=== PATIENT | male | born 1935 | race Caucasian/White ===

== ENCOUNTER 2020-08-25 11:27 | Day surgery (SDC) | payer MEDICARE, OTHER ==
[~2020-08-25 11:27] MED LIST: CHONDR SU A NA/HYALUR INTRAOC KIT (SURGICARE) ONE; DORZOLAMIDE HCL 2%/TIMOLOL MALEAT 0.5% OPH SOLN 10 ML OD PRN; EPINEPHRINE INJ/PF 1 MG/1 ML AMPULE ONE; FENTANYL CITRATE INJ/PF 100 MCG/2 ML AMPUL ONE; KETOROLAC TROMETHAMINE 0.45% 4 DROP/0.4 ML DROPERETTE OD PRN; LIDOCAINE 1%/PHENYLEPHRINE 1.5% 1 ML VIAL ONE; MIDAZOLAM 2 MG/2 ML INJ ONE; ONDANSETRON HCL INJ/PF 4 MG/2 ML SDV ONE; PREDNISOLONE ACETATE 1% OPH SUSP 5 ML OD PRN
[2020-08-25] MEDS: TETRACAINE HCL 0.5% OPH SOLN 4 ML OD PRN ×3 (11:41→12:03)
[2020-08-25] MEDS: TROPICAMIDE 1% OPH SOLN 15 ML OD PRN ×3 (11:41→12:01)
[2020-08-25] MEDS: BESIFLOXACIN HCL 0.6% OPH SUSP 5 ML BOTTLE OD PRN ×3 (11:42→12:27)
[2020-08-25] MEDS: CYCLOPENTOLATE 0.2%/PHENYLEPHRINE 1% OPH SOLN 2 ML OD PRN ×3 (11:42→12:01)
--- NOTE | 2020-08-25 14:31 | Operative Report ---
Operative Report-[facility] Operative Report: DATE OF SURGERY: August 25, 2020 PREOPERATIVE DIAGNOSIS: NUCLEAR CATARACT, RIGHT EYE. POSTOPERATIVE DIAGNOSIS: NUCLEAR CATARACT, RIGHT EYE. PROCEDURE PERFORMED: PHACOEMULSIFICATION WITH POSTERIOR CHAMBER INTRAOCULAR LENS IMPLANT, RIGHT EYE. SURGEON: Henry Brown DO MEDICATIONS AND ANESTHESIA: Versed: IV Versed Tetracaine drops: 1 to 2 drops given as needed COMPLICATION: None INDICATIONS FOR SURGERY: Medical necessity: Best corrected visual acuity worse than 20/40 secondary to cataracts with impairment of ability to carry out needs or desired activities, blurred vision, visual distortion, reduced contrast sensitivity and/or glare with association functional impairment and supporting documentation/testing, and cataracts causing symptomatic impairment of visual functions not corrected with tolerable changes in glasses or contact lenses interfering with activities of daily life. PROCEDURE: Consent: The risks, benefits and alternatives of this procedures was discussed with the patient. The patient read and signed the consent forms, was identified and was seated in the exam chair. IOL: MX 60 E 25.0 IOL Diopters: Phacoemulsification with posterior chamber intraocular lens implant: The face was prepped with 5% povidone iodine solution, and a few drops of 5% povidone iodine solution was instilled into the inferior fornix. A non-fenestrated drape was placed over the eye and the lids were parted with the speculum. A paracentesis was made with a 15 degree blade, and 1% lidocaine MPF followed by viscoelastic was injected into the anterior chamber. A 2.4 mm metal micro- keratome was used to create a temporal clear corneal incision. A circular anterior capsulorrhexis was created, followed by hydro-dissection and hydro- delineation. The phacoemulsification hand piece was inserted and the nucleus was removed with the Phaco chop technique. The irrigation-aspiration hand piece was used to remove the residual cortex, and vacuum the posterior capsule. The capsular bag was inflated and viscoelastic and the above-mentioned IOL was injected into the eye with care to insert both leaning and trailing haptics in the capsular bag. The irrigation/aspiration hand piece was reinserted to remove residual viscoelastic from the capsular bag and anterior chamber. The corneal incision was hydrated, and anterior chamber was inflated with sterile BSS via the paracentesis site, and found to be watertight. Postop medication: 1 drop of prednisolone into operative by followed by 1 drop of Cosopt into operative eye followed by 1 drop of Besivance intraoperative by other:
== END 2020-08-25 12:59 ==
LOC: SC 11:27
PROVIDERS: ATTEND Ophthalmology
DX: H25.11 Age-related nuclear cataract, right eye (principal); H35.3132 Nonexudative age-related macular degeneration, bilateral, intermediate dry stage; I10 Essential (primary) hypertension; I48.91 Unspecified atrial fibrillation; E78.00 Pure hypercholesterolemia, unspecified; Z79.899 Other long term (current) drug therapy; Z86.718 Personal history of other venous thrombosis and embolism
CPT/HCPCS: 66984; J2250; J3490 ×2; A9270; J0171; J2405; J3010; V2632

== ENCOUNTER 2020-09-08 07:23 | Day surgery (SDC) | payer MEDICARE, OTHER ==
[~2020-09-08 07:23] MED LIST changes: -DORZOLAMIDE HCL 2%/TIMOLOL MALEAT 0.5% OPH SOLN 10 ML OD PRN; -FENTANYL CITRATE INJ/PF 100 MCG/2 ML AMPUL ONE; -KETOROLAC TROMETHAMINE 0.45% 4 DROP/0.4 ML DROPERETTE OD PRN; +KETOROLAC TROMETHAMINE 0.45% 4 DROP/0.4 ML DROPERETTE OS PRN; -MIDAZOLAM 2 MG/2 ML INJ ONE; -ONDANSETRON HCL INJ/PF 4 MG/2 ML SDV ONE; -PREDNISOLONE ACETATE 1% OPH SUSP 5 ML OD PRN
[2020-09-08] MEDS: TETRACAINE HCL 0.5% OPH SOLN 4 ML OS PRN ×3 (08:15→08:50)
[2020-09-08] MEDS: BESIFLOXACIN HCL 0.6% OPH SUSP 5 ML BOTTLE OS PRN ×4 (08:15→09:04)
[2020-09-08] MEDS: TROPICAMIDE 1% OPH SOLN 15 ML OS PRN ×3 (08:15→08:40)
[2020-09-08] MEDS: CYCLOPENTOLATE 0.2%/PHENYLEPHRINE 1% OPH SOLN 2 ML OS PRN ×3 (08:15→08:40)
[2020-09-08] MEDS ORDERED: MIDAZOLAM 2 MG/2 ML INJ ONE (08:34)
[2020-09-08] MEDS: DORZOLAMIDE HCL 2%/TIMOLOL MALEAT 0.5% OPH SOLN 10 ML OS PRN ×2 (08:59→09:04)
[2020-09-08] MEDS: PREDNISOLONE ACETATE 1% OPH SUSP 5 ML OS PRN ×2 (08:59→09:04)
--- NOTE | 2020-09-08 11:03 | Operative Report ---
Operative Report-[facility] Operative Report: DATE OF SURGERY: September 08, 2020 PREOPERATIVE DIAGNOSIS: NUCLEAR CATARACT, LEFT EYE. POSTOPERATIVE DIAGNOSIS: NUCLEAR CATARACT, LEFT EYE. PROCEDURE PERFORMED: PHACOEMULSIFICATION WITH POSTERIOR CHAMBER INTRAOCULAR LENS IMPLANT, LEFT EYE. SURGEON: Henry Brown DO MEDICATIONS AND ANESTHESIA: Versed: IV Versed Tetracaine drops: 1 to 2 drops given as needed COMPLICATION: None INDICATIONS FOR SURGERY: Medical necessity: Best corrected visual acuity worse than 20/40 secondary to cataracts with impairment of ability to carry out needs or desired activities, blurred vision, visual distortion, reduced contrast sensitivity and/or glare with association functional impairment and supporting documentation/testing, and cataracts causing symptomatic impairment of visual functions not corrected with tolerable changes in glasses or contact lenses interfering with activities of daily life. PROCEDURE: Consent: The risks, benefits and alternatives of this procedures was discussed with the patient. The patient read and signed the consent forms, was identified and was seated in the exam chair. IOL: MX 60 E 24.0 IOL Diopters: Phacoemulsification with posterior chamber intraocular lens implant: The face was prepped with 5% povidone iodine solution, and a few drops of 5% povidone iodine solution was instilled into the inferior fornix. A non-fenestrated drape was placed over the eye and the lids were parted with the speculum. A paracentesis was made with a 15 degree blade, and 1% lidocaine MPF followed by viscoelastic was injected into the anterior chamber. A 2.4 mm metal micro- keratome was used to create a temporal clear corneal incision. A circular anterior capsulorrhexis was created, followed by hydro-dissection and hydro- delineation. The phacoemulsification hand piece was inserted and the nucleus was removed with the Phaco chop technique. The irrigation-aspiration hand piece was used to remove the residual cortex, and vacuum the posterior capsule. The capsular bag was inflated and viscoelastic and the above-mentioned IOL was injected into the eye with care to insert both leaning and trailing haptics in the capsular bag. The irrigation/aspiration hand piece was reinserted to remove residual viscoelastic from the capsular bag and anterior chamber. The corneal incision was hydrated, and anterior chamber was inflated with sterile BSS via the paracentesis site, and found to be watertight. Postop medication:1 drop of prednisolone into operative by followed by 1 drop of Cosopt into operative eye followed by 1 drop of Besivance intraoperative by Other:
--- OUTSIDE RECORDS SUMMARY | 2020-09-09 17:55 | XMS REPORT ---
:1935 [facility] [address] [place] [address] Care Team Providers Name Role Phone Ken Porras Primary Care Physician Unavailable ERAN Attending Clinician Unavailable Eran RICHMOND Attending Clinician Unavailable Vern RICHMOND Attending Clinician Unavailable MD Serina Olivera Attending Clinician Unavailable MD Serina Olivera Attending Clinician Unavailable MD Pamela Attending Clinician Unavailable MD Pamela Attending Clinician Unavailable ALEXUS Attending Clinician Unavailable Ashley Calderon Admitting Clinician Unavailable MD Pamela Admitting Clinician Unavailable Allergies, Adverse Reactions, Alerts This patient has no known allergies or adverse reactions. Medications Ordered Filled Start Stop Current Ordering Indication Dosage Frequency Signature Comments Components Medication Medication Date Date Medication? Clinician (SIG) Name Name Furosemide 2019-10 Peg Rogers Furosemide 20 MG Oral 0-12 Porras 20 MG Oral Tablet 00:00: Tablet 1 00 tablet each day as needed for leg swelling Quantity: 30 Refills: 1 Ken Porras MD Start : 0Active Lisinopril 2019-10 Yes Ken QD Lisinopril 5 MG Oral 0-12 Porras 5 MG Oral Tablet 00:00: MD Tablet 00 TAKE 1 TABLET DAILY DIRECTED Quantity: 90 Refills: 3 Ken Porras MD Start : 0Active Furosemide 2019-10 Yes Ken Furosemide 20 MG Oral 0-12 Porras 20 MG Oral Tablet 00:00: Tablet 1 00 tablet each day as needed for leg swelling Quantity: 90 Refills: 3 Ken Porras MD Start : 0Active Furosemide 2019-10 No Ken 1 QD Furosemide 20 MG Oral 0-12 Porras 20 MG Oral Tablet 00:00: MD Tablet 00 TAKE 1 TABLET DAILY Quantity: 30 Refills: 3 Ken Porras MD Start : 0Active Metoprolol Peg Figueroa Metoprolol Tartrate 25 9-18 Eran RICHMOND Tartrate MG Oral 00:00: 25 MG Oral Tablet 00 Tablet TAKE 1/2 (ONE-HALF) TABLET BY MOUTH TWICE A DAY Quantity: 180 Refills: 3 Henry Barillas MD Start : 0Active Eliquis 5 2020-0 Yes Eligio Eliquis 5 MG Oral 07-16 Pamela MD MG Oral Tablet 00:00: Tablet 00 TAke 1 tablet twice a day Quantity: 90 Refills: 3 Eligio Santiago MD Start : 0Active Metoprolol 2020-0 Yes Eligio Metoprolol Tartrate 25 07-16 Pamela RICHMOND Tartrate MG Oral 00:00: 25 MG Oral Tablet 00 Tablet TAKE 1/2 (ONE-HALF) TABLET BY MOUTH TWICE A DAY Quantity: 180 Refills: 3 Eligio Santiago MD Start : 0Active Lasix 20 mg 2020-0 Yes 20mg 20 mg = 1 oral tablet 9-13 tab(s), 16:29: PO, Daily, 00 # 5 tab(s), 0 Refill(s), Pharmacy: [email or web address] #[id number], 167, cm, 07/11/20 12:24:00 EDT, Height, 68, kg, 07/11/20 12:24:00 EDT, Weight metoprolol 2020-0 Yes 12.5mg 12.5 mg = tartrate 25 9-13 0.5 mg oral 16:24: tab(s), tablet 00 PO, BID Eliquis 5 2020-0 Yes 5mg 5 mg = 1 mg oral -13 tab(s), tablet 16:23: PO, BID 00 Metoprolol 2020-0 No 12.5mg 12.5 mg = Tartrate 25 9-07 0.5 mg oral 12:58: tab(s), tablet 00 PO, BID, # 30 tab(s), 2 Refill(s), Pharmacy: [facility] #[id number], 172.72, cm, 07/04/20 1:45:00 EDT, Height, 59.5, kg, 07/04/20 1:45:00 EDT, Weight Eliquis 5 2020-0 No 5mg 5 mg = 1 mg oral 9-07 tab(s), tablet 12:58: PO, BID, # 00 60 tab(s), 2 Refill(s), Pharmacy: [facility] #[id number], 172.72, cm, 07/04/20 1:45:00 EDT, Height, 59.5, kg, 07/04/20 1:45:00 EDT, Weight acetaminoph 2020-0 Yes 650mg 650 mg = 2 en 325 mg 9-07 tab(s), oral tablet 12:58: PO, q4h, 00 Other: See Comments, 0 Refill(s) aspirin 81 2020-0 Yes 81mg 81 mg = 1 mg oral 9-07 tab(s), delayed 12:52: PO, Daily release 00 tablet simvastatin 2020-0 Yes 40mg 40 mg = 1 40 mg oral -07 tab(s), tablet 12:52: PO, QHS 00 FeroSul 325 2020-0 Yes 325mg 325 mg = 1 mg (65 mg -07 tab(s), elemental 12:49: PO, Daily iron) oral 00 tablet Aspirin EC 2020-0 Yes Ken Aspirin EC 81 MG Oral 06-28 Porras 81 MG Oral Tablet 00:00: Tablet Delayed 00 Delayed Release Release Take 1 tablet by mouth once daily Quantity: 90 Refills: 3 Ken Porras MD Start : 0Active Atenolol 50 2020-0 No Ken 1 QD Atenolol MG Oral 06-28 Porras 50 MG Oral Tablet 00:00: Tablet 00 TAKE 1 TABLET DAILY. Refills: 0 Ken Porras MD Start : 0Active Lisinopril 2020-0 Peg Rogers Lisinopril 10 MG Oral 06-28 Vern 10 MG Oral Tablet 00:00: Tablet 00 TAKE ONE TABLET BY MOUTH EVERY DAY Quantity: 1 Refills: 3 Ken Porras MD Start : 0Active 90 Tablet Bottle Sulfamethox 2020-0 No Ken Q0.5D Sulfametho azole-Trime 06-28 Vern xazole-Tri thoprim 00:00: methoprim 800-160 MG 00 800-160 MG Oral Tablet Oral Tablet TAKE 1 TABLET TWICE DAILY. Quantity: 10 Refills: 0 Ken Porras MD Start : 0Active FeroSul 325 2020-0 No 0 FeroSul (65 Fe) MG 8-14 325 (65 Oral Tablet 00:00: Fe) MG 00 Oral Tablet TK 1 T PO QD Quantity: 30 Refills: 0 ,,, Start : 0Active Simvastatin 2019-0 No Simvastati 40 MG Oral 8-14 n 40 MG Tablet 00:00: Oral 00 Tablet TK 1 T PO ONCE D HS Quantity: 30 Refills: 0 Start : 0Active FeroSul 325 2019-0 Yes Ken FeroSul (65 Fe) MG 8- Vern 325 (65 Oral Tablet 00:00: MD Fe) MG 00 Oral Tablet 1 tablet 3 times daily Quantity: 270 Refills: 2 Ken Porras MD Start : 0Active Simvastatin 0 Yes Ken QD Simvastati 40 MG Oral 8- Vern n 40 MG Tablet 00:00: Oral 00 Tablet TAKE 1 TABLET DAILY DIRECTED. 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 medical history not documented Hypertensio Hypertensio Problem Active n n Anemia Anemia Problem Active Vitamin B Vitamin B Problem Active 12 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 Mild Mild Problem Active vitamin D vitamin D deficiency deficiency Toe pain, Toe pain, Problem Active bilateral bilateral Persistent Persistent Problem Active atrial atrial fibrillatio fibrillatio n n Iron Iron 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 Procedures Procedure Date / Time Performed Performing Clinician Shiv silvestre Basic Metabolic Panel(BMP) 2020-09-06 00:00:00 Hemoglobin 2020-09-06 00:00:00 L - proBNP 2020-09-06 00:00:00 Magnesium 2020-09-06 00:00:00 CMP(Complete Metabolic Panel) 2020-08-09 00:00:00 EKG 2020-07-22 00:00:00 Embolectomy Thrombectomy Femoral 2020-07-03 21:56:00 IPO (Left)1 Embolectomy Thrombectomy Femoral 2020-07-03 21:56:00 IPO (Left)1 History of Thrombectomy 2020-07-03 00:00:00 Manual Diff 2020-06-29 00:00:00 CMP(Complete Metabolic Panel) 2020-06-28 00:00:00 Iron & TIBC Panel 2020-06-28 00:00:00 Lipid Panel 2020-06-28 00:00:00 Thyroid Panel 2020-06-28 00:00:00 Vitamin B12 2020-06-28 00:00:00 Vitamin D Total 2020-06-28 00:00:00 Urine Culture 2020-06-28 00:00:00 Procedures not documented Results Test Description Test Time Test Comments Text Results Atomic Results Result Comments CMP(Complete Metabolic Panel) 2020-08-09 12:10:00 Test Item Value Reference Range Comments Glucose (test code = Glucose) 79 mg/dL 74-106 Sodium (test code = Sodium) 138 mmol/L 135-145 Potassium (test code = Potassium) 4.8 mmol/L 3.5-5.3 Chloride (test code = Chloride) 106 mmol/L 98-107 CO2 (test code = CO2) 28 mmol/L 22-30 Creatinine, serum (test code = Creatinine, serum) 1.10 mg/dL 0.10-1.25 Glomerular Filtration Rate (test code = Glomerular Filtration >6 0 >60 Rate) Glomerular Filtration Rate AA (test code = Glomerular >60 >60 Filtration Rate AA) Blood Urea Nitrogen (test code = Blood Urea Nitrogen) 17 mg/dL 9-20 Calcium (test code = Calcium) 9.9 mg/dL 8.4-10.5 Phosphorus (test code = Phosphorus) 3.3 mg/dL 2.5-4.5 Total Protein (test code = Total Protein) 6.7 g/dL 6.3-8. 2 Albumin (test code = 57591-0) 3.9 g/dL 3.5-5.0 Total Bilirubin (test code = Total Bilirubin) 0.7 mg/dL 0. 2-1.3 Bilirubin, unconj (test code = Bilirubin, unconj) 0.5 mg/dL 0.0-1.1 Bilirubin, Direct (test code = Bilirubin, Direct) 0.2 mg/dL 0.0-0.4 Alkaline Phosphatase (test code = Alkaline Phosphatase) 136 U/L 20-150 Alanine Transaminase (test code = Alanine Transaminase) 13 U/L 0-50 Aspartate Aminotransferase (test code = Aspartate 22 U/L 3-36 Aminotransferase) [id number] 12:06:00 Test Item Value Reference Range Comments White Blood Cell (test code = White Blood Cell) 8.5 K/uL 3.5-11.1 Red Blood Cell (test code = Red Blood Cell) 4.79 {M/uL} 4.27 -5.49 Hemoglobin (test code = Hemoglobin) 14.0 g/dL 12.9-16.1 Hematocrit (test code = Hematocrit) 44 % 38-47 Mean Corpuscular Volume (test code = Mean 91.0 fL 79.0-9 5.0 Corpuscular Volume) Mean Corpuscular Hemoglobin (test code = Mean 29.2 pg/mL 27 .0-33.0 Corpuscular Hemoglobin) Mean Corpuscular Hemoglobin Concentration (test 32.1 g/dL 33.5-35.5 code = Mean Corpuscular Hemoglobin Concentration) Red Cell Distribution Width (test code = Red 14.9 % 12. 0-15.0 Cell Distribution Width) Platelet (test code = Platelet) 252 K/uL 130-353 Mean Platelet Volume (test code = Mean Platelet 9.3 fL 7.5-10.7 Volume) Neutrophil Count, absolute (test code = 5.6 K/uL 1.9-7.2 Neutrophil Count, absolute) Neutrophil Count Percentage (test code = 65.9 % 43.0-72 .0 Neutrophil Count Percentage) Lymphocyte Count, absolute (test code = 1.9 K/uL 1.1-2.7 Lymphocyte Count, absolute) Lymphocyte Count Percentage (test code = 22.0 % 17.0-44 .0 Lymphocyte Count Percentage) Monocyte Count, absolute (test code = Monocyte 0.8 K/uL 0 .3-0.8 Count, absolute) Monocyte Count Percentage (test code = Monocyte 8.8 % 4.5-12.4 Count Percentage) Eosinophil Count, absolute (test code = 0.2 K/uL 0.0-0.5 Eosinophil Count, absolute) Eosinophil Count Percentage (test code = 2.8 % 0.7-7.8 Eosinophil Count Percentage) Basophil Count, absolute (test code = Basophil 0.0 K/uL 0 .0-0.1 Count, absolute) Basophil Count Percentage (test code = Basophil 0.4 % 0.2-1.1 Count Percentage) PT,[id number] 13:30:00 Test Item Value Reference Range Comments PT (test code = PT) 11.3 s 9.7-11.3 INR (test code = INR) 1.1 0.9-1.1 [id number] 13:30:00 Test Item Value Reference Range Comments PTT (test code = PTT) 29.1 s 22.5-28.6 B-Natriuretic [id number] 12:43:00 Test Item Value Reference Range Comments B-Natriuretic Peptide (test code = 391.00 pg/mL 0-100 B-Natriuretic Peptide) WBC,Neutro Percent,Lymph Percent,Larimer Percent,Eos Percent,Basophil Percent,Neut Absolute,Lymphs [id number] 12:43:00 Test Item Value Reference Range Comments WBC (test code = WBC) 12.1 1 4.8-10.8 Neutro Percent (test code = 72.8 % 34.6-71.4 Neutro Percent) Lymph Percent (test code = 15.7 % 19.6-52.7 Lymph Percent) Larimer Percent (test code = Larimer 8.4 % 2.4-11.8 Percent) Eos Percent (test code = Eos 2.2 % 0-7.8 Percent) Basophil Percent (test code = 0.6 % 0-1.8 Basophil Percent) Neut Absolute (test code = Neut 8.8 1 1.8-7.3 Absolute) Lymphs Absolute (test code = 1.9 1 1.5-4.0 Lymphs Absolute) Larimer Absolute (test code = Larimer 1.0 1 0.2-1.0 Absolute) Eos Absolute (EOSA) (test code 0.3 1 0-0.7 = Eos Absolute (EOSA)) Baso Absolute (BASOA) (test 0.1 1 0.0-0.2 code = Baso Absolute (BASOA)) RBC (test code = RBC) 4.54 1 4.70-6.10 Hgb (test code = Hgb) 13.5 1 14.0-18.0 Hct (test code = Hct) 41.4 % 40.0-54.0 Result Com ment: HEMATOCRIT-RECHE CKED MCV (MCV) (test code = MCV 91.2 fL 80-94 (MCV)) MCH (HCH) (test code = MCH 29.7 pg 27-34 (HCH)) MCHC (MCHC) (test code = MCHC 32.6 % 31.5-36.0 (MCHC)) RDW (RDW) (test code = RDW 15.6 % 11.5-14.5 (RDW)) Platelet (test code = Platelet) 472 1 130-400 MPV (test code = MPV) 9.5 fL 7.4-10.4 Glucose Lvl,BUN,Creatinine,Bili Total,Alk Phos,AST,ALT,Total Protein,Albumin Lvl,Globulin,Albumin/[id number] 12:43:00 Test Item Value Reference Range Comments Glucose Lvl (test code = Glucose Lvl) 98 mg/dL 74-106 BUN (test code = BUN) 15 mg/dL 9-23 Creatinine (test code = Creatinine) 0.99 mg/dL 0.70-1.30 Bili Total (test code = Bili Total) 1.2 mg/dL 0.2-1.2 Alk Phos (test code = Alk Phos) 133 1 46-116 AST (test code = AST) 23 1 15-34 ALT (test code = ALT) 17 1 10-49 Total Protein (test code = Total Protein) 7.1 1 5.7-8. 2 Albumin Lvl (test code = Albumin Lvl) 3.8 1 3.4-5.0 Globulin (test code = Globulin) 3.3 1 1.5-4.5 Albumin/Globulin Ratio (test code = 1.2 1.1-1.8 Albumin/Globulin Ratio) Calcium Lvl (test code = Calcium Lvl) 10.1 mg/dL 8.7-10.4 Sodium Lvl (test code = Sodium Lvl) 137 mmol/L 136-145 Potassium Lvl (test code = Potassium Lvl) 4.4 mmol/L 3.4-5. 1 Chloride (test code = Chloride) 106 mmol/L 98-107 CO2 (test code = CO2) 27.0 mmol/L 20-31 Anion Gap (test code = Anion Gap) 4 4-18 Calc Osmol (test code = Calc Osmol) 274 1 BUN/CR Ratio (test code = BUN/CR Ratio) 15 GFR Non (test code = GFR Non >60.00 ) GFR (test code = GFR >60.00 Czech) [id number] 12:43:00 Test Item Value Reference Range Comments Troponin-I (test code = Troponin-I) <0.01 0.00-0.06 POC [id number] 07:30:00 Test Item Value Reference Range Comments POC Glucose (test code = POC Glucose) Done Charted [id number] 04:37:00 Test Item Value Reference Range Comments PTT (test code = PTT) 108.1 s 22.5-28.6 Result Com ment: PTT-RECHECKED PTT-CALLED TO AN D READ BACK BY PTT-VENTURA RAMIREZ @521 72 CL BUN,Sodium Lvl,Potassium Lvl,Chloride,CO2,Glucose Lvl,Creatinine,Calcium Lvl,BUN/CR Ratio,Anion Gap,2020-07-05 04:37:00 Test Item Value Reference Range Comments BUN (test code = BUN) 23 mg/dL 9-23 Sodium Lvl (test code = Sodium Lvl) 137 mmol/L 136-145 Potassium Lvl (test code = Potassium Lvl) 4.4 mmol/L 3.4-5. 1 Chloride (test code = Chloride) 110 mmol/L 98-107 CO2 (test code = CO2) 23.0 mmol/L 20-31 Glucose Lvl (test code = Glucose Lvl) 85 mg/dL 74-106 Creatinine (test code = Creatinine) 1.11 mg/dL 0.70-1.30 Calcium Lvl (test code = Calcium Lvl) 9.0 mg/dL 8.7-10.4 BUN/CR Ratio (test code = BUN/CR Ratio) 21 Anion Gap (test code = Anion Gap) 4 4-18 Calc Osmol (test code = Calc Osmol) 277 1 GFR Non (test code = GFR Non >60.00 ) GFR (test code = GFR >60.00 Czech) WBC,Neutro Percent,Lymph Percent,Larimer Percent,Eos Percent,Basophil Percent,Neut Absolute,Lymphs [id number] 04:37:00 Test Item Value Reference Range Comments WBC (test code = WBC) 11.0 1 4.8-10.8 Neutro Percent (test code = Neutro Percent) 64.8 % 34.6 -71.4 Lymph Percent (test code = Lymph Percent) 19.0 % 19.6-5 2.7 Larimer Percent (test code = Larimer Percent) 9.6 % 2.4-11.8 Eos Percent (test code = Eos Percent) 5.2 % 0-7.8 Basophil Percent (test code = Basophil Percent) 0.9 % 0-1.8 Neut Absolute (test code = Neut Absolute) 7.1 1 1.8-7. 3 Lymphs Absolute (test code = Lymphs Absolute) 2.1 1 1. 5-4.0 Larimer Absolute (test code = Larimer Absolute) 1.1 1 0.2-1. 0 Eos Absolute (EOSA) (test code = Eos Absolute 0.6 1 0- 0.7 (EOSA)) Baso Absolute (BASOA) (test code = Baso Absolute 0.1 1 0.0-0.2 (BASOA)) RBC (test code = RBC) 3.79 1 4.70-6.10 Hgb (test code = Hgb) 11.1 1 14.0-18.0 Hct (test code = Hct) 33.1 % 40.0-54.0 MCV (MCV) (test code = MCV (MCV)) 87.3 fL 80-94 MCH (HCH) (test code = MCH (HCH)) 29.3 pg 27-34 MCHC (MCHC) (test code = MCHC (MCHC)) 33.5 % 31.5-36.0 RDW (RDW) (test code = RDW (RDW)) 14.3 % 11.5-14.5 Platelet (test code = Platelet) 254 1 130-400 MPV (test code = MPV) 9.4 fL 7.4-10.4 Magnesium [id number] 04:37:00 Test Item Value Reference Range Comments Magnesium Lvl (test code = Magnesium Lvl) 1.8 mg/dL 1.60-2 .60 Whole Blood [id number] 15:43:00 Test Item Value Reference Range Comments Whole Blood Glucose (test code = Whole Blood 109 mg/dL 74- 106 Glucose) MRSA [id number] 00:55:00 Test Item Value Reference Range Comments MRSA Screen (test code = NEGATIVE Result Comment: MRSA SCREEN- MRSA Screen) MRSA SCREEN-A po sitive test result does not necessarily indicate the pre sence of viable organisms but is presumptive for MRSA. MRSA SCREE N-Results should be used to ident ricky patients needing enhanced precautions and should not be us ed to guide or monitor treatmen t for MRSA infections. ID NOW Covid 20:50:00 Test Item Value Reference Range Comments ID NOW Covid 19 (test COVID-19 NEGATIVE Result C omment: ID NOW code = ID NOW Covid COVID1-Th is result does 19) not rule out co- infections with other patho gens. False negative results may occur if a specimen is im properly collected, trans ported or handled. False n egative results may also occur if amplification in hibitors are present in the s pecimen or if inadequate level s of viruses are present in t he specimen. Negative results should be considered in th e context of a patient's rece nt exposures, history and the presence of clinical signs a nd symptoms consistent with COVID-1. This assay is only in tended for use under the od and Drug Administration's (FDA) Emergency Use Authorization(EU A). Terms of use require that the following Fact S heets be provided with is test report: --[facility] ID NOW COVID 1 f or Providers --[employer] tics ID NOW COVID 1 for Cesilia ents These Fact Sheets can be accessed at: http:www.ana[facility] v[facility]-hjixwjkqy-[email or web address] -[email or web address]-1.html PT,[id number] 18:36:00 Test Item Value Reference Range Comments PT (test code = PT) 11.5 s 9.7-11.3 INR (test code = INR) 1.1 0.9-1.1 Bili Total,Alk Phos,AST,ALT,Total Protein,Albumin Lvl,Globulin,Albumin/Globulin [id number] 18:36:00 Test Item Value Reference Range Comments Bili Total (test code = Bili Total) 0.6 mg/dL 0.2-1.2 Alk Phos (test code = Alk Phos) 145 1 46-116 AST (test code = AST) 25 1 15-34 ALT (test code = ALT) 25 1 10-49 Total Protein (test code = Total Protein) 6.9 1 5.7-8. 2 Albumin Lvl (test code = Albumin Lvl) 3.4 1 3.4-5.0 Globulin (test code = Globulin) 3.5 1 1.5-4.5 Albumin/Globulin Ratio (test code = 1.0 1.1-1.8 Albumin/Globulin Ratio) [id number] 17:10:[address] [address] Patient: SANJUANITA WALLS : 1935 Sex: M Address: [address] [place] [address] [place] [address] Unit #: [id number] RE SEQ #: [id number] Location: ED Room #: Ordering: CHALO VAUGHAN DO Diagnosis: SEVERE LEG PAIN - US ARTERIAL LEG DOPPLER LEFT History: SEVERE LEG PAIN SEVERE LEG PAIN pain, discolored EXAM: Real-time color Doppler spectral analysis performed the lower extremity arterial system on the left. FINDINGS: Mild waveform is detected in the left external iliac, however, slightly distal to this the artery is occluded. The left common femoral artery and superficial femoral artery are occluded. There is a small amountof flow in the left history tibial no flow in the anterior tibial and dorsalis pedis. 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 Small amount of flow detected below the knee in the posterior tibial but none in the anterior tibial and dorsalis pedis.. Final report electronically signed by: Valentina Pérez MD Signed by: VALENTINA PÉREZ II, MD 07/03/20 0043 cc: CHALO VAUGHAN II, TOBIN A MDULTRASOUND2020-09-05 17:10:[address] [address] Patient: SANJUANITA WALLS : 1935 Sex: M Address: [address] [place] [address] [place] [address] [id number] Unit #: [id number] [facility] SEQ #: [id number] Location: ED Room #: Ordering: CHALO VAUGHAN DO Diagnosis: SEVERE LEG PAIN - US VENOUS LEG DOPPLER LT History: SEVERE LEG PAIN SEVERE LEG PAIN Y pain, discolored EXAM: Real-time color Doppler spectral analysis of the left lower extremity venous system. FINDINGS: There is intraluminal thrombus in left popliteal vein. The left common femoral vein and superficial femoral vein are patent without intraluminal thrombus and the calf veins are unremarkable. No Crum's cyst. IMPRESSION: Findings compatible with a deep vein thrombosis in the left popliteal vein. Final report electronically signed by: Valentina Pérez MD Signed by: VALENTINA PÉREZ II, MD 07/03/20 [id number] cc: CHALO VAUGHAN II,VALENTINA Hoffman MDAutomated blood hematocrit (volume fraction)2020-07-03 16:13:00 Test Item Value Reference Range Comments Hematocrit (test code = 4544-3) 42.4 37.7-46.5 Automated erythrocyte mean corpuscular [id number] 16:13:00 Test Item Value Reference Range Comments Mean Corpuscular Volume (test code = 787-2) 89.6 79.3 -94.8 Automated erythrocyte mean corpuscular hemoglobin (mass per erythrocyte) 2020-07-03 16:13:00 Test Item Value Reference Range Comments Mean Corpuscular Hemoglobin (test code = 785-6) 29.8 26.8-33.2 Automated erythrocyte mean corpuscular hemoglobin concentration measurement (mass/volume)2020-07-03 16:13:00 Test Item Value Reference Range Comments Mean Corpuscular Hemoglobin Concent (test code = 33.2 33.5-35.5 786-4) Automated erythrocyte distribution width [id number] 16:13:00 Test Item Value Reference Range Comments Red Cell Distribution Width (test code = 788-0) 14.7 12.0-15.1 Automated blood platelet count (count/volume)2020-07-03 16:13:00 Test Item Value Reference Range Comments Platelet Count (test code = 777-3) 278 165-353 Automated blood platelet mean volume [id number] 16:13:00 Test Item Value Reference Range Comments Mean Platelet Volume (test code = 69069-3) 7.6 7.5-1 0.6 Automated blood neutrophil count as percentage of total [id number] 16:13:00 Test Item Value Reference Range Comments Neutrophils (%) (Auto) (test code = 770-8) 76.1 43.2- 71.5 Automated blood lymphocyte count as percentage of total [id number] 16:13:00 Test Item Value Reference Range Comments Lymphocytes (%) (Auto) (test code = 736-9) 10.6 16.8- 43.4 Automated blood monocyte count as percentage of total [id number] 16:13:00 Test Item Value Reference Range Comments Monocytes (%) (Auto) (test code = 5905-5) 10.3 4.6-12 .4 Automated blood eosinophil count as percentage of total [id number] 16:13:00 Test Item Value Reference Range Comments Eosinophils (%) (Auto) (test code = 713-8) 2.2 0.7-7 .8 Automated blood basophil count as percentage of total [id number] 16:13:00 Test Item Value Reference Range Comments Basophils (%) (Auto) (test code = 706-2) 0.8 0.2-1.2 Blood neutrophils automated count (number/volume)2020-07-03 16:13:00 Test Item Value Reference Range Comments Neutrophils # (Auto) (test code = 751-8) 6.9 1.9-7.2 Automated blood lymphocyte count (number/volume)2020-07-03 16:13:00 Test Item Value Reference Range Comments Lymphocytes # (Auto) (test code = 731-0) 1.0 1.1-2.7 Blood monocytes automated count (number/volume)2020-07-03 16:13:00 Test Item Value Reference Range Comments Monocytes # (Auto) (test code = 742-7) 0.9 0.3-0.8 Automated blood eosinophil [id number] 16:13:00 Test Item Value Reference Range Comments Eosinophils # (Auto) (test code = 711-2) 0.2 0.0-0.5 Automated blood basophil count (count/volume)2020-07-03 16:13:00 Test Item Value Reference Range Comments Basophils # (Auto) (test code = 704-7) 0.1 0.0-0.1 Prothrombin time (PT) in platelet poor plasma by coagulation [id number] 16:13:00 Test Item Value Reference Range Comments Prothrombin Time (test code = 5902-2) 13.9 10.8-14.2 INR in Platelet poor plasma by Coagulation [id number] 16:13:00 Test Item Value Reference Range Comments Prothromb Time International 1.03 INR Therapeutic Range:2.0-3.0 Ratio (test code = 6301-6) Oral Anticoagulant Therapy2.5-3.5 P rosthetic Heart Valves, Recurren t Systemic Embolism Plasma partial thromboplastin time (PTT)2020-07-03 16:13:00 Test Item Value Reference Range Comments APTT (Heparin Protocol) (test 31.3 24.6-36.0 CA LLED BY Glenys Trinidad at code = 68509-2) 1636 TO FABIEN COYLE RN AND R/V. Sodium [Moles/volume] in [id number] 16:13:00 Test Item Value Reference Range Comments Sodium Level (test code = 2947-0) 134 137-144 Potassium [Moles/volume] in Serum or [id number] 16:13:00 Test Item Value Reference Range Comments Potassium Level (test code = 2823-3) 4.9 3.1-5.1 Chloride [id number] 16:13:00 Test Item Value Reference Range Comments Chloride Level (test code = 903394703) 104 101-110 Carbon dioxide [id number] 16:13:00 Test Item Value Reference Range Comments Carbon Dioxide Level (test code = 74969860) 17 23-3 1 Glucose [Moles/volume] in Serum or [id number] 16:13:00 Test Item Value Reference Range Comments Glucose Level (test code = 85317-7) 140 70-105 [id number] 16:13:00 Test Item Value Reference Range Comments Blood Urea Nitrogen (test code = 715079166) 29.0 8.4- 25.7 Creatinine [id number] 16:13:00 Test Item Value Reference Range Comments Creatinine (test code = 838553450) 1.54 0.72-1.25 Estimation of creatinine [id number] 16:13:00 Test Item Value Reference Range Comments Estimated Creatinine Clearance 32.84 P T Ht: 172.72cm, PT Wt: 66.2KG Calc (test code = 273164775) Anion gap [id number] 16:13:00 Test Item Value Reference Range Comments Anion Gap (test code = 10190599) 18 7-16 [id number] 16:13:00 Test Item Value Reference Range Comments Calcium Level (test code = 62347255) 9.6 8.4-10.2 Total [id number] 16:13:00 Test Item Value Reference Range Comments Total Bilirubin (test code = QNG0271) 0.6 0.1-1.2 Total protein [id number] 16:13:00 Test Item Value Reference Range Comments Total Protein (test code = 2885-2) 7.0 6.0-8.3 [id number] 16:13:00 Test Item Value Reference Range Comments Albumin (test code = LOU5601) 3.5 3.2-5.2 Plasma globulin measurement (mass/volume)2020-07-03 16:13:00 Test Item Value Reference Range Comments Globulin (test code = 68208-1) 3.5 2.6-4.6 Albumin to globulin [id number] 16:13:00 Test Item Value Reference Range Comments Albumin/Globulin Ratio (test code = 383633) 1.0 1.1- 2.5 Total creatine kinase erxxhmefmsc6573-50-07 16:13:00 Test Item Value Reference Range Comments Total Creatine Kinase (test code = 569017302) 44 37 -289 AST (SGOT) ser/wlbp3540-51-25 16:13:00 Test Item Value Reference Range Comments Aspartate Amino Transf (AST/SGOT) (test code = 25 5 -34 46914157) Alkaline llhjhqvecra8014-79-63 16:13:00 Test Item Value Reference Range Comments Alkaline Phosphatase (test code = 47784251) 135 40-1 50 ALT (SGPT) ser/[id number] 16:13:00 Test Item Value Reference Range Comments Alanine Aminotransferase (ALT/SGPT) (test code = 26 0-55 1742-6) Blood leukocytes automated count (number/volume)2020-07-03 16:13:00 Test Item Value Reference Range Comments White Blood Count (test code = 6690-2) 9.1 3.6-11.1 Blood erythrocytes automated count (number/volume)2020-07-03 16:13:00 Test Item Value Reference Range Comments Red Blood Count (test code = 789-8) 4.73 4.27-5.49 Blood hemoglobin measurement (mass/volume)2020-07-03 16:13:00 Test Item Value Reference Range Comments Hemoglobin (test code = 718-7) 14.1 12.9-16.1 Urine [id number] 16:00:00 Test Item Value Reference Range Comments Final Report (test Microbiology results Osborne C ount[06/30/2020 code = Final Report) 11:16 AM ] 75,000 cfu/mlResult[06/30 11:16 AM ] Mix ed culture, suggest chata of contamination. P lease resubmit if nece ssary. Lipid [id number] 15:23:00 Test Item Value Reference Range Comments Chol/HDL Ratio (test code = 2089-1) 2.0 {ratio} 0.0-6.0 High Density Lipoprotein Cholesterol (test code 63 mg/dL 40-110 = High Density Lipoprotein Cholesterol) Low Density Lipoprotein, calculated (test code = 51 mg/dL 1-130 Low Density Lipoprotein, calculated) CMP(Complete Metabolic Panel)2020-06-28 15:23:00 Test Item Value Reference Range Comments Glucose (test code = Glucose) 86 mg/dL 74-106 Sodium (test code = Sodium) 133 mmol/L 135-145 Potassium (test code = Potassium) 4.4 mmol/L 3.5-5.3 Chloride (test code = Chloride) 99 mmol/L 98-107 CO2 (test code = CO2) 29 mmol/L 22-30 Creatinine, serum (test code = Creatinine, serum) 1.20 mg/dL 0.10-1.25 Glomerular Filtration Rate (test code = >60 >60 Glomerular Filtration Rate) Glomerular Filtration Rate AA (test code = >60 >60 Glomerular Filtration Rate AA) Blood Urea Nitrogen (test code = Blood Urea 28 mg/dL 9-20 Nitrogen) Calcium (test code = Calcium) 10.1 mg/dL 8.4-10.5 Phosphorus (test code = Phosphorus) 3.6 mg/dL 2.5-4.5 Total Protein (test code = Total Protein) 6.6 g/dL 6.3-8. 2 Albumin (test code = 16028-8) 3.7 g/dL 3.5-5.0 Total Bilirubin (test code = Total Bilirubin) 1.2 mg/dL 0. 2-1.3 Bilirubin, unconj (test code = Bilirubin, unconj) 1.0 mg/dL 0.0-1.1 Bilirubin, Direct (test code = Bilirubin, Direct) 0.2 mg/dL 0.0-0.4 Alkaline Phosphatase (test code = Alkaline 135 U/L 20-15 0 Phosphatase) Alanine Transaminase (test code = Alanine 49 U/L 0-50 Transaminase) Aspartate Aminotransferase (test code = Aspartate 71 U/L 3-36 Aminotransferase) Iron & TIBC [id number] 15:23:00 Test Item Value Reference Range Comments Iron (test code = Iron) 22 ug/dL 49-181 Repeated Total Iron Binding Capacity (test code = Total 312 ug/dL 2 61-462 Iron Binding Capacity) Iron % Saturation (test code = Iron % Saturation) 7 % 13-59 Vitamin [id number] 15:23:00 Test Item Value Reference Range Comments Vitamin B12 (test code = Vitamin B12) 403 pg/mL 239-931 Vitamin D [id number] 15:23:00 Test Item Value Reference Range Comments Vitamin D, total (test code = Vitamin D, total) 43 ng/mL 30-100 Thyroid [id number] 15:23:00 Test Item Value Reference Range Comments Thyroid Stimulating Hormone (test code = 1.61 {mIU/mL} 0.46-4. 68 Thyroid Stimulating Hormone) Total T4 (test code = Total T4) 8.20 ug/dL 5.53-11.00 T3 Uptake (test code = T3 Uptake) 42.1 % 23.5-40.5 Repeated Free Thyroxine Index (test code = Free 3.45 ug/dL 1.65-3.89 Thyroxine Index) [id number] 15:22:00 Test Item Value Reference Range Comments Urine Color (test code = YELLOW Yellow Urine Color) Urine Clarity (test code = CLEAR Clear Urine Clarity) Urine Glucose (test code = NEGATIVE Negative Urine Glucose) Urine Ketones (test code = TRACE Negative Urine Ketones) Urine Bilirubin (test code = NEGATIVE Negative Urine Bilirubin) Urine Specific Orient (test 1.022 1.010-1.030 Ref ractometer code = Urine Specific Orient) Urine Blood (test code = TRACE-INTACT Negative Urine Blood) Urine pH (test code = Urine 6.0 5.0-8.0 pH) Urine Protein (test code = 100 mg/dL Negative Urine Protein) Urine Urobilinogen (test 4.0 Eu/dl 0.2 code = Urine Urobilinogen) Urine Nitrites (test code = NEGATIVE Negative Urine Nitrites) Urine Leukocytes (test code SMALL Negative MICR O- TNTC WBC, FREQ EPITH, = Urine Leukocytes) 1+ BACTERIA [id number] 15:22:00 Test Item Value Reference Range Comments White Blood Cell (test code = 21.7 K/uL 3.5-11.1 CB C repeated, Report to Dr Power Blood Cell) Vern @ [facility] Red Blood Cell (test code = Red 5.17 {M/uL} 4.27-5.49 Blood Cell) Hemoglobin (test code = 15.0 g/dL 12.9-16.1 Hemoglobin) Hematocrit (test code = 46 % 38-47 Hematocrit) Mean Corpuscular Volume (test 88.0 fL 79.0-95.0 code = Mean Corpuscular Volume) Mean Corpuscular Hemoglobin 29.0 pg/mL 27.0-33.0 (test code = Mean Corpuscular Hemoglobin) Mean Corpuscular Hemoglobin 33.0 g/dL 33.5-35.5 Concentration (test code = Mean Corpuscular Hemoglobin Concentration) Red Cell Distribution Width 14.3 % 12.0-15.0 (test code = Red Cell Distribution Width) Platelet (test code = Platelet) 230 K/uL 130-353 Mean Platelet Volume (test code 9.9 fL 7.5-10.7 = Mean Platelet Volume) Neutrophil Count, absolute 17.3 K/uL 1.9-7.2 (test code = Neutrophil Count, absolute) Neutrophil Count Percentage 80.0 % 43.0-72.0 (test code = Neutrophil Count Percentage) Lymphocyte Count, absolute 1.9 K/uL 1.1-2.7 (test code = Lymphocyte Count, absolute) Lymphocyte Count Percentage 8.8 % 17.0-44.0 (test code = Lymphocyte Count Percentage) Monocyte Count, absolute (test 2.4 K/uL 0.3-0.8 code = Monocyte Count, absolute) Monocyte Count Percentage (test 10.9 % 4.5-12.4 code = Monocyte Count Percentage) Eosinophil Count, absolute 0.0 K/uL 0.0-0.5 (test code = Eosinophil Count, absolute) Eosinophil Count Percentage 0.0 % 0.7-7.8 (test code = Eosinophil Count Percentage) Basophil Count, absolute (test 0.0 K/uL 0.0-0.1 code = Basophil Count, absolute) Basophil Count Percentage (test 0.1 % 0.2-1.1 code = Basophil Count Percentage) CBC repeated, Report to Dr Romero @ 345 (WBC)Manual [id number] 15:22:00 Test Item Value Reference Range Comments Segmented Neutrophil (test code = Segmented 82 % Neutrophil) Band Neutrophil (test code = Band Neutrophil) 2 % Lymphocyte (test code = Lymphocyte) 9 % Monocyte (test code = Monocyte) 7 % RBC Morphology (test code = RBC Morphology) Appears Normal Platelet Estimate (test code = Platelet Normal Estimate) Platelet Morphology (test code = Platelet Large Morphology) Assessments Condition Name Status Diagnosis Date Treating Clinici an Anemia Active Persistent atrial fibrillation Active Leg edema Active Hypertension Active Iron deficiency Active Former smoker Active Urinary tract infection Active Anemia Active Toe pain, bilateral Active Onychomycosis Active Ingrowing nail Active Hypertension Active Persistent atrial fibrillation Active Hypercholesterolemia Active Leg edema Active Hypertension Active Iron deficiency Active Does not drink alcohol Active Hypercholesterolemia Active Persistent atrial fibrillation Active Hypertension Active Encounters Start End Encounter Admission Attending Care Care Encounter Date/Time Date/Time Type Type Clinicians Facility Department ID 2020-09-07 2020-09-07 [id number] 13:28:00 13:28:00 HENRY Owen 2020-09-06 2020-09-06 Appointment; GEORGE Barillas [facility] [id number] 13:00:00 13:45:40 Henry Barillas MD 2020-08-19 2020-08-19 Appointment; [facility] [id number] 15:00:00 15:00:00 Tremayne Mcclellan DPM 2020-08-09 2020-08-09 [facility] [id number] 11:30:00 11:30:00 Ken Porras MD 2020-07-22 2020-07-22 Appointment; GEORGE Barillas [facility] [id number] 14:00:00 14:00:00 Henry Barillas MD 2020-07-20 2020-07-20 Appointment; [facility] [id number] 09:45:00 09:45:00 Danilo Fisher PA-C 2020-07-11 2020-07-11 E 1 Cuauhtemoc Olivera [facility] [id number] 12:23:32 16:48:00 Cuauhtemoc Olivera 2020-07-03 2020-07-05 I 1 Eligio Santiago [facility] [id number] 18:04:14 15:00:00 Eligio Santiago 2020-07-03 2020-07-03 [facility] [id number] 15:54:00 17:22:00 CHALO 19 2020-06-28 2020-06-28 Appointment; GEORGE Porras [facility] [id number] 14:30:00 14:30:00 Ken Porras MD Payers Payer Name Policy Type Policy Number Effective Date Expiration D ate Plan of Treatment Planned Activity Planned Date Details Comments Future Scheduled Test [code = ] Social History Smoking Status Start Date Stop Date Never smoker Ex-smoker (finding) Social History Observation Description Sex Male Vital Signs Vital Name Observation Time Observation Value Comments WEIGHT 2020-07-03 16:19:00 66.2000 kg HEIGHT 2020-07-03 16:19:00 172.160548 cm Systolic blood pressure 2020-09-06 12:52:00 138 mm[Hg] Loca tion: RUE; Position: Sittin g Diastolic blood pressure 2020-09-06 12:52:00 68 mm[Hg] Loc ation: RUE; Position: Sittin g Weight 2020-09-06 12:52:00 137.5 [lb_av] Body mass index (BMI) 2020-09-06 12:52:00 22.19 kg/m2 [Ratio] Heart Rate 2020-09-06 12:52:00 76 /min Respiratory rate 2020-09-06 12:52:00 16 /min Body temperature 2020-08-19 15:02:00 97.7 [degF] Heart Rate 2020-08-19 15:02:00 76 /min Systolic blood pressure 2020-08-09 11:29:00 144 mm[Hg] Diastolic blood pressure 2020-08-09 11:29:00 80 mm[Hg] Weight 2020-08-09 11:29:00 135 [lb_av] Body mass index (BMI) 2020-08-09 11:29:00 21.79 kg/m2 [Ratio] Body temperature 2020-08-09 11:29:00 98.2 [degF] Heart Rate 2020-08-09 11:29:00 72 /min O2 SAT 2020-08-09 11:29:00 99 % Systolic blood pressure 2020-07-22 13:55:00 134 mm[Hg] Loca tion: LUE; Position: Sittin g Diastolic blood pressure 2020-07-22 13:55:00 70 mm[Hg] Loc ation: LUE; Position: Sittin g Systolic blood pressure 2020-07-22 13:54:00 132 mm[Hg] Loca tion: RUE; Position: Sittin g Diastolic blood pressure 2020-07-22 13:54:00 68 mm[Hg] Loc ation: RUE; Position: Sittin g Weight 2020-07-22 13:54:00 135 [lb_av] Body mass index (BMI) 2020-07-22 13:54:00 21.79 kg/m2 [Ratio] Heart Rate 2020-07-22 13:54:00 77 /min Systolic blood pressure 2020-07-20 10:19:00 122 mm[Hg] Loca tion: LUE; Diastolic blood pressure 2020-07-20 10:19:00 80 mm[Hg] Loc ation: LUE; Body height 2020-07-20 10:19:00 66 [in_us] Weight 2020-07-20 10:19:00 132 [lb_av] Body mass index (BMI) 2020-07-20 10:19:00 21.31 kg/m2 [Ratio] Body temperature 2020-07-20 10:19:00 97.8 [degF] Respiratory rate 2020-07-20 10:19:00 14 /min Heart Rate 2020-07-20 10:19:00 78 /min O2 SAT 2020-07-20 10:19:00 82 % Systolic Blood Pressure 2020-07-11 16:30:00 143 mm[Hg] Diastolic Blood Pressure 2020-07-11 16:30:00 91 mm[Hg] Peripheral Pulse Rate 2020-07-11 16:30:00 80 /min Respiratory Rate 2020-07-11 16:30:00 16 /min Systolic Blood Pressure 2020-07-11 15:00:00 141 mm[Hg] Diastolic Blood Pressure 2020-07-11 15:00:00 93 mm[Hg] Peripheral Pulse Rate 2020-07-11 15:00:00 80 /min Respiratory Rate 2020-07-11 15:00:00 16 /min Systolic Blood Pressure 2020-07-11 14:30:00 141 mm[Hg] Diastolic Blood Pressure 2020-07-11 14:30:00 93 mm[Hg] Peripheral Pulse Rate 2020-07-11 14:30:00 80 /min Respiratory Rate 2020-07-11 14:30:00 16 /min Temperature Oral 2020-07-11 12:24:00 36.4 Yancy Systolic Blood Pressure 2020-07-05 12:00:00 110 mm[Hg] Diastolic Blood Pressure 2020-07-05 12:00:00 59 mm[Hg] Temperature Oral 2020-07-05 11:00:00 36.8 Yancy Peripheral Pulse Rate 2020-07-05 11:00:00 91 /min Systolic Blood Pressure 2020-07-05 11:00:00 100 mm[Hg] Diastolic Blood Pressure 2020-07-05 11:00:00 64 mm[Hg] Temperature Oral 2020-07-05 07:30:00 36.7 Yancy Peripheral Pulse Rate 2020-07-05 07:30:00 90 /min Systolic Blood Pressure 2020-07-05 07:30:00 126 mm[Hg] Diastolic Blood Pressure 2020-07-05 07:30:00 62 mm[Hg] Peripheral Pulse Rate 2020-07-05 03:40:00 84 /min Temperature Oral 2020-07-05 03:00:00 36.8 Yancy Respiratory Rate 2020-07-04 13:50:00 22 /min Heart Rate Monitored 2020-07-04 12:00:00 89 /min Respiratory Rate 2020-07-04 12:00:00 19 /min Heart Rate Monitored 2020-07-04 11:00:00 77 /min Respiratory Rate 2020-07-04 11:00:00 14 /min Heart Rate Monitored 2020-07-04 10:30:00 78 /min Temperature Axillary 2020-07-04 07:00:00 36.6 Yancy Temperature Axillary 2020-07-04 04:00:00 36.0 Yancy Temperature Axillary 2020-07-04 00:00:00 35.7 Yancy BMI (Body Mass Index) 2020-07-03 16:19:00 22.0 kg/m2 Weight 2020-07-03 15:54:00 145.95 [lb_av] Systolic blood pressure 2020-06-28 14:53:00 104 mm[Hg] Diastolic blood pressure 2020-06-28 14:53:00 60 mm[Hg] Body height 2020-06-28 14:53:00 66 [in_us] Weight 2020-06-28 14:53:00 132 [lb_av] Body mass index (BMI) 2020-06-28 14:53:00 21.31 kg/m2 [Ratio] Body temperature 2020-06-28 14:53:00 97.8 [degF] Heart Rate 2020-06-28 14:53:00 77 /min O2 SAT 2020-06-28 14:53:00 94 % Hospital Discharge Instructions NameDatesDetailsInstructions not documentedNameDatesDetailsInstructions not documentedNameDatesDetailsInstructions not documented NameDatesDetailsInstructions not documentedNameDatesDetailsInstructions not documentedAd[facility] 16:30:00PERIPHERAL EDEMA, BilateralLeg Swelling in Both LegsSwelling of the feet, ankles, and legs is called edema. It is caused by excess fluid that has collected in the tissues. Extra fluid in the body settles in the lowest part because of gravity. This is why the legs and feet are most affected.Some of the causes for edema include: Disease of the heart like congestive heart failure Standing or sitting for long periods of time Infection of the feet or legs Blood pooling in the veins of your legs (venous insufficiency) Dilated veins in your lower leg (varicose veins) Garters or other clothing that is tight on your legs. This will cause blood to pool in your legs because the clothing limits blood flow. Some medicines such as hormones like control pills, some blood pressure medicines like calcium channel blockers (amlodipine) and steroids, some antidepressants like MAO inhibitors and tricyclics Menstrual periods that cause you to retain fl uids Many types of renal disease Liver failure?or cirrhosis , some swelling is normal, but a sudden increase in leg swelling or weight gain can be a sign of a dangerous complication of Poor nutrition Thyroid diseaseMedical treatment will depend on what is causing the swelling in your legs. Your healthcare provider may prescribe water pills (diuretics) to get rid of the extra fluid.Home careFollow these guidelines when caring for yourself at home: Don't wear clothing like garters that is tight on your legs. Keep your legs up while lying or sitting. If infection, injury, or recent surgery is causing the swelling, stay off your legs as much as possible untilsymptoms get better. If your healthcare provider says that your leg swelling is caused by venous insufficiency or varicose veins, don't sit or consulting hr professional one place for long periods of time. Take breaks and walk about every few hours. Brisk walking is a good exercise. It helps circulate the blood thathas collected in your leg. Talk with your provider about using support stockings to stop daytime legswelling. If your provider says that heart disease is causing your leg swelling, follow a low-salt diet to stop extra fluid from staying in your body. You may also need medicine.Follow-up careFollowup with your healthcare provider, or as advised.When to seek medical adviceCall your healthcare provider right away if any of these occur: New shortness of breath or chest pain Shortness of breath or chest pain that gets worse Swelling in both legs or ankles that gets worse Swelling of theabdomen Redness, warmth, or swelling in one leg Fever of 100.4?F (38?C) or higher, or as directed by your healthcare provider Yellow color to your skin or eyes Rapid, unexplained weight gain Having to sleep upright or use an increased number of pillows? [id number] [employer]. [address] [place] [address], [place] [address]. All rights reserved. This information is not intended as a substitute for professional medical care. Always follow your healthcare professional's instructions.Follow Up Care07/11/2020 12:23:47With: Return to ED if symptoms recurAddress: UnknownWhen: Within3 Day(s)Comments: Return GIORGIO if WorseWith: Eligio SantiagoAddress: [facility] [address] [facility] [place] [address]- Business (1)When: Within 3 Day(s)Patient Blxgyfjin97/07/2020 13:52:21How to Take Your Blood Pressure, Gcfd-qk-FdevFsh to Take Your Blood PressureYou can take your blood pressure at home with a machine. You may need to check your bloodpressure at home: To check if you have high blood pressure (hypertension). To check your bloodpressure over time. To make sure your blood pressure medicine is working.Supplies needed:You willneed a blood pressure machine, or monitor. You can buy one at a [employer] or online. When choosing one: Choose one with an arm cuff. Choose one that wraps around your upper arm. Only one finger should fit between your arm and the cuff. Do not choose one that measures your blood pressure from your wrist or finger.Your doctor can suggest a monitor.How to prepareAvoid these things for 30 minutes before checking your blood pressure: Drinking caffeine. Drinking alcohol. Eating. Smoking. Exercising.Five minutes before checking your blood pressure: Pee. Sit in a dining chair.Avoid sitting in a soft couch or armchair. Be quiet. Do not talk.How to take your blood pressureFollow the instructions that came with your machine. If you have a digital blood pressure monitor, these may be the instructions:1. Sit up straight.2. Place your feet on the floor. Do not cross your ankles or legs.3. Rest your left arm at the level of your heart. You may rest it on a table, desk, or chair.4. Pull up your shirt sleeve.5. Wrap the blood pressure cuff around the upper part of your left arm. The cuff should be 1 inch (2.5 cm) above your elbow. It is best to wrap the cuff around bare skin.6. Fit the cuff snugly around your arm. You should be able to place only one finger between the cuff and your arm.7. Put the cord inside the groove of your elbow.8. Press the power button.9. Sit quietlywhile the cuff fills with air and loses air.10. Write down the numbers on the screen.11. Wait 23 minutes and then repeat steps 110.What do the numbers mean?Two numbers make up your blood pressure. The first number is called systolic pressure. The second is called diastolic pressure. An example of a blood pressure reading is "120 over 80" (or 120/80).If you are an adult and do not have a medicalcondition, use this guide to find out if your blood pressure is normal:Normal First number: below 120. Second number: below 80.Elevated First number: [id number]. Second number: below 80.Hypertension stage 1 First number: [id number]. Second number: 8089.Hypertension stage 2 First number: 140 or above. Second number: 90 or above.Your blood pressure is above normal even if only the top or bottom number is above normal.Follow these instructions at home: Check your blood pressure as often as your doctor tells you to. Take your monitor to your next doctor's appointment. Your doctor will: Make sure you are using it correctly. Make sure it is working right. Make sure you understand what your blood pressure numbers should be. Tell your doctor if your medicines are causing side effects.Contact a doctor if: Your blood pressure keeps being high.Get help right away if: Your first blood pressure number is higher than 180. Your second blood pressure number is higher than 120.This information is not intended to replace advice given to you by your health careprovider. Make sure you discuss any questions you have with your health care provider.Document Released: 09/27/2009 Document Revised: 09/12/2017 Document Reviewed: 03/23/2017Elsevier Interactive Patient Education ? 2019 Neul.07/05/2020 13:52:21Peripheral Vascular DiseasePeripheral Vascular DiseasePeripheral vascular disease (PVD) is a disease of the blood vessels. A simple term for PVD is poor circulation. In most cases, PVD narrows the blood vessels that carry blood from your heart to the rest of your body. This can result in a decreased supply of blood to your arms, legs, and internal organs, like your stomach or kidneys. However, it most often affects a persons lower legs and feet.There are two types of PVD. Organic PVD. This is the more common type. It is caused by damage to thestructure of blood vessels. Functional PVD. This is caused by conditions that make blood vessels contract and tighten (spasm).Without treatment, PVD tends to get worse over time.PVD can also lead toacute limb ischemia. This is when an arm or leg suddenly has trouble getting enough blood. This is amedical emergency.What are the causes?Each type of PVD has many different causes. The most common cause of PVD is buildup of a fatty material (plaque) inside your arteries (atherosclerosis). Small amounts of plaque can break off from the mathias of the blood vessels and become lodged in a smaller artery. This blocks blood flow and can cause acute limb ischemia.Other common causes of PVD include: Blood clots that form inside of blood vessels. Injuries to blood vessels. Diseases that cause inflammation of blood vessels or cause blood vessel spasms. Health behaviors and health history that in crease your risk of developing PVD.What increases the risk?You are more likely to develop this condition if: You have a family history of PVD. You have certain medical conditions, including: High cholesterol. Diabetes. High blood pressure (hypertension). Coronary heart disease. Past problems with blood clots. Past injury, such as geiger or a broken bone. These may have damaged blood vessels in your limbs. Buerger disease. This is caused by inflamed blood vessels in your hands and feet. Some forms of arthritis. Rare defects that affect the arteries in your legs. Kidney disease. You use tobacco or smoke. You do not get enough exercise. You are obese. You are age 50 or older.What are the signs or symptoms?This condition may cause different symptoms. Your symptoms depend on what part of your body is not getting enough blood. Some common signs and symptoms include: Cramps in your lower legs. This may be a symptom of poor leg circulation (claudication). Pain and weakness in your legs. This happens while you are physically active but goes away when you rest (intermittent claudication). Leg pain when at rest. Leg numbness, tingling, or weakness. Coldness in a leg or foot, especially when compared with the other leg. Skin or hair changes. These can include: Hair loss. Shiny skin. Pale or bluish skin. Thick toenails. Inability to get or maintain an erection (erectile dysfunction). Fatigue.People with PVD are more likely to develop ulcers and sores on their toes, feet, or legs. These may take longer than normal to heal.How is this diagnosed?This condition is diagnosed based on: Your signs and symptoms. A physical exam and your medical history. Other tests to find out what is causing your PVD and to determine its severity. Tests may include: Blood pressure recordings from your arms and legs and measurements of the strength of your pulses (pulse volume recordings). Imaging studies using sound waves to take pictures of the blood flow through your blood vessels (Doppler ultrasound). Injecting a dye into your blood vessels before having imaging studies using: X-rays (angiogram or arteriogram). Computer-generated X- rays (CT angiogram). A powerful electromagnetic field and a computer (m agnetic resonance angiogram or MRA).How is this treated?Treatment for PVD depends on the cause of your condition and how severe your symptoms are. It also depends on your age. Underlying causes need kei treated and controlled. These include long-term (chronic) conditions, such as diabetes, high cholesterol, and high blood pressure. Treatment includes: Lifestyle changes, such as: Quitting smoking. Exercising regularly. Following a low-fat, low- cholesterol diet. Taking medicines, suchas: Blood thinners to prevent blood clots. Medicines to improve blood flow. Medicines to improve your blood cholesterol levels. Surgical procedures, such as: A procedure that uses an inflated balloon to open a blocked artery and improve blood flow (angioplasty). A procedure to put sada wire mesh tube to keep a blocked artery open (stent implant). Surgery to reroute blood flow around a blocked artery (peripheral bypass surgery). Surgery to remove tissue from an infected wound on the affected limb. Amputation. This is surgical removal of the affected limb. It may be necessary in cases of acute limb ischemia where there has been no improvement through medical or surgical treatments.Follow these instructions at home:Lifestyle Do not use any products that contain nicotine or tobacco, such as cigarettes and e-cigarettes. If you need help quitting, ask your health care provider. Lose weight if you are overweight, and maintain a healthy weight as discussed by your health care provider. Eat a diet that is low in fat and cholesterol. If you need help, ask your health care provider. Exercise regularly. Ask your health care provider to suggest some good activiti es for you.General instructions Take xiyn-xnf-vhzhvjk and prescription medicines only as told by your health care provider. Take good care of your feet: Wear comfortable shoes that fit well. Check your feet often for any cuts or sores. Keep all follow-up visits as told by your health care provider. This is important.Contact a health care provider if: You have cramps in your legs while walking. You have leg pain when you are at rest. You have coldness in a leg or foot. [place]ourskin changes. You have erectile dysfunction. You have cuts or sores on your feet that are not healing.Get help right away if: Your arm or leg turns cold, numb, and blue. Your arms or legs become red, warm, swollen, painful, or numb. You have chest pain or trouble breathing. You suddenly have weakness in your face, arm, or leg. You become very confused or lose the ability to speak. You suddenly have a very bad headache or lose your vision.Summary Peripheral vascular disease (PVD) is a disease of the blood vessels. In most cases, PVD narrows the blood vessels that carry blood from your heart to the rest of your body. PVD may cause different symptoms. Your symptoms depend on what part of your body is not getting enough blood. Treatment for PVD depends on the causeof your condition and how severe your symptoms are.This information is not intended to replace advice given to you by your health care provider. Make sure you discuss any questions you have with your health care provider.Document Released: 11/22/2005 Document Revised: 11/22/2017 Document Reviewed: 11/22/2017[employer] Interactive Patient Education ? 2019 Neul.07/05/2020 13:52:21Femoral Endarterectomy, Care AfterFemoral Endarterectomy, Care AfterThis sheet gives you information about how to care for yourself after your procedure. Your health care provider may also give you more specific instructions. If you have problems or questions, contact your health care provider.What can I expect after the procedure?After the procedure, it is common to have mild pain.Follow these instructions at home:Incision care Follow instructions from your health care provider about how to take care of your incision. Make sure you: Wash your hands with soap and water before you change your bandage (dressing). If soap and water are not available, use hand coal sampler. Change your dressing as told by your health care provider. Leave stitches (sutures), skin glue, or adhesive strips in place. These skin closures may need to stay in place for 2 weeks or longer. If adhesive strip edges start to loosen andcurl up, you may trim the loose edges. Do not remove adhesive strips completely unless your health care provider tells you to do that. Check your incision area every day for signs of infection. Check for: Redness, swelling, or pain. Fluid or blood. Warmth. Pus or a bad smell.Bathing Do not take baths, swim, or use a hot tub until your health care provider approves. Ask your health care provider if you may take showers.Driving Do not drive for 24 hours if you were given a medicine to help you relax (sedative) during your procedure. Do not drive or use heavy machinery while taking prescription pain medicine.Activity Until your health care provider approves: Do not lift anything that is heavier than 10 lb (4.5 kg), or the limit that you are told. Do not do any activities that require a lot of energy (strenuous activities). Do not take long car trips. Do not travel by air. Do not sit or stand for long periods at a time. Get up to take short walks every 12 hours. Ask for help if you feel weak or unsteady. Raise (elevate) your leg above the level ofyour heart while you are sitting or lying down. Exercise regularly, as told by your health care pr ovider. Talk with your health care provider before starting a new exercise plan. Return to your normal activities as told by your health care provider. Ask your health care provider what activities are safe for you.Eating and drinking Eat a heart-healthy diet that includes fruits, vegetables, and whole grains. Avoid saturated fats. Follow instructions from your health care provider aboutany other eating and drinking restrictions.Lifestyle Do not use any products that contain nicotine or tobacco, such as cigarettes and e- cigarettes. These can delay healing after surgery. If you needhelp quitting, ask your health care provider. Maintain a healthy weight. Talk with your health care provider if you need help.If you are taking blood thinners: Talk with your health care providerbefore you take any medicines that contain aspirin or NSAIDs. These medicines increase your risk fordangerous bleeding. Take your medicine exactly as told, at the same time every day. Avoid activities that could cause injury or bruising, and follow instructions about how to prevent falls. Wear a medical alert bracelet or carry a card that lists what medicines you take.General instructions Take cqqn-tbp-okosduk and prescription medicines only as told by your health care provider. To prevent or treat constipation while you are taking prescription pain medicine, your health care provider may recommend that you: Drink enough fluid to keep your urine pale yellow. Eat foods that are high in fiber, such as fresh fruits and vegetables, whole grains, and beans. Limit foods that are high in fat and processed sugars, such as fried or sweet foods. Take an wdme-lli-hgymhfg or prescription medicine for constipation. Wear compression stockings as told by your health care provider. These stockings help to prevent blood clots and reduce swelling in your legs. Keep all follow-up visits as told by your health care provider. This is important.Contact a health care provider if you : Have redness, swelling, or pain around your incision. Have fluid or blood coming from your incision. Notice that your incision feels warm to the touch. Have pus or a bad smell coming fromyour incision. Have a fever. Have pain that does not get better with medicine. Have pain inyour leg while you walk.Get help right away if you: Have: Severe pain. Shortness of breath. Chest pain. Red streaks leading away from your incision. Notice that: Your leg becomes red, swollen, or sore. Your leg or foot changes color. Your leg or foot becomes numb.Summary Check your incision area every day for signs of infection, such as redness or swelling. Do not useany products that contain nicotine or tobacco, such as cigarettes and e-cigarettes. These can delay healing after surgery. You should get help right away if you notice red streaks leading away from your incision.This information is not intended to replace advice given to you by your health care provider. Make sure you discuss any questions you have with your health care provider.Document Released:01/09/2011 Document Revised: 08/07/2019 Document Reviewed: 08/29/2018[employer] Interactive Patient Education ? 2019 Neul.07/05/2020 13:52:21Atrial FibrillationAtrial FibrillationAtrial fibrillation is a type of irregular or rapid heartbeat (arrhythmia). In atrial fibrillation, the top part of the heart (atria) quivers in a chaotic pattern. This makes the heart unable to pump blood normally. Having atrial fibrillation can increase your risk for other health problems, such as: Blood can poolin the atria and form clots. If a clot travels to the brain, it can cause a stroke. The heart muscle may weaken from the irregular blood flow. This can cause heart failure.Atrial fibrillation may start suddenly and stop on its own, or it may become a long- lasting problem.What are the causes?This condition is caused by some heart- related conditions or procedures, including: High blood pressure. This is the most common cause. Heart failure. Heart valve conditions. Inflammation of the sac that surrounds the heart (pericarditis). Heart surgery. Coronary artery disease. Certain heart rhythm disorders, such as WolfParkinsonWhite syndrome.Other causes include: Pneumonia. Obstructive sleep apnea. Lung cancer. Thyroid problems, especially if the thyroid is overactive (hyperthyroidism). Excessive alcohol or drug use.Sometimes, the cause of this condition is notknown.What increases the risk?This condition is more likely to develop in: Older people. People who smoke. People who have diabetes mellitus. People who are overweight (obese). Athletes who exercise vigorously. People who have a family history.What are the signs or symptoms?Symptoms of this condition include: A feeling that your heart is beating rapidly or irregularly. A feeling of discomfort or pain in your chest. Shortness of breath. Sudden light- headedness or weakness. Getting tired easily during exercise.In some cases, there are no symptoms.How is this diagnosed?Your health care provider may be able to detect atrial fibrillation when taking your pulse. If detected, this condition may be diagnosed with: Electrocardiogram (ECG). Ambulatory continuous improvement coordinator.This device records your heartbeats for 24 hours or more. Transthoracic echocardiogram (TTE) to evaluate how blood flows through your heart. Transesophageal echocardiogram (DAPHNE) to view more detailed images of your heart. A stress test. Imaging tests, such as a CT scan or chest X- ray. Blood tests.How is this treated?This condition may be treated with: Medicines to slow down the heart rate or bring the heart's rhythm back to normal. Medicines to prevent blood clots from forming. Electrical cardioversion. This delivers a low-energy shock to the heart to reset its rhythm. Ablation. This procedure destroys the part of the heart tissue that sends abnormal signals. Left atrial appendage occlusion/excision. This seals off a common place in the atria where blood clots can form (left atrial appendage).The goal of treatment is to prevent blood clots from forming and to keep your heart beating at a normal rate and rhythm. Treatment depends on underlying medical conditions andhow you feel when you are experiencing fibrillation.Follow these instructions at home:Medicines Take over-the counter and prescription medicines only as told by your health care provider. If yourhealth care provider prescribed a blood-thinning medicine (anticoagulant), take it exactly as told. Taking too much blood-thinning medicine can cause bleeding. Taking too little can enable a blood clotto form and travel to the brain, causing a stroke.Lifestyle Do not use any products that contain nicotine or tobacco, such as cigarettes and e-cigarettes. If you need help quitting, ask your health care provider. Do not drink beverages that contain caffeine, such as coffee, soda, and tea. Follow diet instructions as told by your health care provider. Exercise regularly as told by your health care provider. Do not drink alcohol.General instructions If you have obstructive sleep apnea, manage your condition as told by your health care provider. Maintain a healthy weight. Do not use diet pills unless your health care provider approves. Diet pills may make heart problems worse.Keep all follow-up visits as told by your health care provider. This is important.Contact a health care provider if you: Notice a change in the rate, rhythm, or strength of your heartbeat. Are taking an anticoagulant and you notice increased bruising. Tire more easily when you exercise or exert yourself. Have a sudden change in weight.Get help right away if you have: Chest pain, abdominal pain, sweating, or weakness. Difficulty breathing. Blood in your vomit, stool (feces), or urine. Any symptoms of a stroke. "BE FAST" is an easy way to remember the main warning signs of a stroke: B - Balance. Signs are dizziness, sudden trouble walking, or loss of balance. E - Eyes. Signs are trouble seeing or a sudden change in vision. F - Face. Signs are sudden weakness or numbness of the face, or the face or eyelid drooping on one side. A - Arms. Signs are weakness or numbness in an arm. This happens suddenly and usually on one side of the body. S - Speech. Signs are sudden trouble speaking, slurred speech, or trouble understanding what people say. T - Time. Time to call emergency services. Write down what time symptoms started. Other signs of a stroke, such as: A sudden, severe headache with no known cause. Nausea or vomiting. Seizure.These symptoms may represent a serious problem that is an emergency. Do not wait to see if the symptoms will go away. Get medical help right away. Call your local emergency services (911 in the [place] Do not drive yourself to the hospital.Summary Atrial fibrillation is a type of irregular or rapid heartbeat (arrhythmia). Symptoms include a feeling that your heart is beating fast or irregularly. In some cases, you may not have symptoms. The condition is treated with medicines to slow down the heart rate or bring the heart's rhythm back to normal. You may also need blood- thinning medicines to prevent blood clots. Get help right away if you have symptoms or signs of a stroke.This information is not intended to replace advice given to you by your health care provider. Make sure you discuss any questions you have with your health care provider.Document Released: 10/15/2006 Document Revised: 12/06/2018 Document Reviewed: 12/06/2018[employer] Interactive Patient Education ? 2019 Neul.Follow Up Care07/03/2020 18:05:03With: Molly Zelayaddress: [facility] [address] [place] [address]- Business (1)When: UnknownComments: Please call Dr. Tova duong tomorrow to make a follow-up appointment for 10-14 days.With: Eligio SantiagoAddress: [facility] [address] [place] [address]- Business (1)When: UnknownComments: Call Dr. Santiago's office tomorrow at [phone] to make a 2 week follow up apointment.NameDatesDetailsInstructions not documented
== END 2020-09-08 09:37 ==
LOC: SC 07:23
PROVIDERS: ATTEND Ophthalmology
DX: H25.12 Age-related nuclear cataract, left eye (principal); Z98.41 Cataract extraction status, right eye; I10 Essential (primary) hypertension; I48.91 Unspecified atrial fibrillation; E78.00 Pure hypercholesterolemia, unspecified; Z79.02 Long term (current) use of antithrombotics/antiplatelets
CPT/HCPCS: 66984; V2632; J2250; J3490 ×2; A9270; J0171